=== PATIENT | male | born 1955 | race Caucasian/White ===

== ENCOUNTER → 2024-07-04 06:37 | Outpatient (REF) | payer MEDICARE, OTHER, SELFPAY ==
[2024-07-04 07:18] LABS: % Basophils 0.5 % (0-2); % Eosinophils 2.5 % (0-6); % Immature Granulocytes 0.6 % (0-0.5); % Lymphocytes 17.6 % (20.5-51.1); % Monocytes 6.3 % (1.7-9.3); % Neutrophils 72.5 % (42.2-75.2); Absolute Eosinophils 0.2 10^3/uL (0-0.7); Absolute Immature Granulocytes 0.1 10^3/uL (0-0.05); Absolute Lymphocytes 1.5 10^3/uL (1.2-3.4); Absolute Monocytes 0.5 10^3/uL (0.1-0.6); Absolute Neutrophils 6.1 10^3/uL (1.4-6.5); Hematocrit 45.7 % (39.0-52.0); Hemoglobin 15.4 g/dL (13.0-18.0); Mean Corp Hgb Conc. 33.7 g/dL (33.0-37.0); Mean Corpuscular Hgb 31.8 pg (27.0-31.0); Mean Corpuscular Volume 94.2 fL (80.0-94.0); Mean Platelet Volume 10.1 fL (7.4-10.4); Nucleated Red Blood Cells % 0 % (-); Platelet Count 188 10^3/uL (130-400); Red Blood Cell Count 4.85 10^6/uL (4.70-6.10); Red Cell Dist. Width 14.3 % (11.5-14.5); White Blood Cell Count 8.5 10^3/uL (4.8-10.8)
[2024-07-04 07:51] LABS: HDL Cholesterol 47 mg/dl; LDL Cholesterol, Calculated 74 mg/dl; Total Cholesterol 148 mg/dl (50-199); Triglyceride 139 mg/dl (10-149); Very Low Density Lipoprotein 27 mg/dl (0-30)
[2024-07-04 08:41] LABS: Glycohemoglobin (HgbA1c) 5.9 % (4.0-5.6)
[2024-07-04 21:17] LABS: FSH 3.1 mIU/ml (1.55-9.74); Luteinizing Hormone 2.48 mIU/ml (1.24-7.80); Prolactin 9.1 ng/ml (3.7-17.9); Vitamin D, 25-OH*** 33.1 ng/mL (30-80)
[2024-07-04 21:31] LABS: PSA, Total - Screen 1.44 ng/ml (0.0-4.0)
[2024-07-05 13:45] LABS: HIV Combo Negative (Negative)
[2024-07-05 15:24] LABS: % Free Testosterone 1.8 % (1.6-2.9); Free Testosterone 62 pg/mL (47-244); Sex Hormone Binding Globulin 32 nmol/L (19-76); Total Testosterone 336 ng/dL (300-720)
== END ==
LOC: REG 06:37
PROVIDERS: ATTENDING PHYSICIAN Internal Medicine Geriatric Medicine
DX: Z76.89 Persons encountering health services in other specified circumstances (principal); E78.5 Hyperlipidemia, unspecified; K21.9 Gastro-esophageal reflux disease without esophagitis; G31.84 Mild cognitive impairment of uncertain or unknown etiology; N52.9 Male erectile dysfunction, unspecified; R73.03 Prediabetes; E66.09 Other obesity due to excess calories; E87.5 Hyperkalemia; G47.00 Insomnia, unspecified
CPT/HCPCS: 36415; 80061; 82088; 82306; 83001; 83002; 83036; 84146; 84244; 84270; 84402; 84403; 85025; 87389; G0103

== ENCOUNTER → 2024-07-20 12:44 | Outpatient (REF) | payer MEDICARE, OTHER, SELFPAY ==
[2024-07-20 14:26] LABS: Luteinizing Hormone 2.66 mIU/ml (1.24-7.80); Prolactin 5.5 ng/ml (3.7-17.9)
== END ==
LOC: REG 12:44
PROVIDERS: ATTENDING PHYSICIAN Internal Medicine Geriatric Medicine
DX: N52.9 Male erectile dysfunction, unspecified (principal)
CPT/HCPCS: 36415; 83001; 83002; 84146; 84270; 84402; 84403

== ENCOUNTER → 2024-11-15 06:44 | Outpatient (REF) | payer MEDICARE, OTHER, SELFPAY ==
[2024-11-15 08:46] LABS: % Basophils 0.3 % (0-2); % Eosinophils 2.8 % (0-6); % Immature Granulocytes 0.3 % (0-0.5); % Lymphocytes 24.7 % (20.5-51.1); % Monocytes 7.3 % (1.7-9.3); % Neutrophils 64.6 % (42.2-75.2); Absolute Eosinophils 0.2 10^3/uL (0-0.7); Absolute Lymphocytes 1.7 10^3/uL (1.2-3.4); Absolute Monocytes 0.5 10^3/uL (0.1-0.6); Absolute Neutrophils 4.4 10^3/uL (1.4-6.5); Hematocrit 46.5 % (39.0-52.0); Hemoglobin 15.4 g/dL (13.0-18.0); Mean Corp Hgb Conc. 33.1 g/dL (33.0-37.0); Mean Corpuscular Hgb 30.9 pg (27.0-31.0); Mean Corpuscular Volume 93.2 fL (80.0-94.0); Nucleated Red Blood Cells % 0 % (-); Platelet Count 170 10^3/uL (130-400); Red Blood Cell Count 4.99 10^6/uL (4.70-6.10); Red Cell Dist. Width 14.3 % (11.5-14.5); White Blood Cell Count 6.7 10^3/uL (4.8-10.8)
[2024-11-15 09:17] LABS: ALT (SGPT) 17 U/L (0-50); AST (SGOT) 21 U/L (17-59); Albumin 4.3 g/dl (3.5-5.0); Alkaline Phosphatase 68 U/L (38-126); Blood Urea Nitrogen 29 mg/dl (9-20); Calcium 9.8 mg/dl (8.4-10.2); Carbon Dioxide 30 mmol/L (22-30); Chloride 103 mmol/L (98-107); Glucose 110 mg/dl (70-99); HDL Cholesterol 53 mg/dl; LDL Cholesterol, Calculated 92 mg/dl; Sodium 139 mmol/L (135-145); Total Bilirubin 0.9 mg/dl (0.2-1.3); Total Cholesterol 167 mg/dl (50-199); Total Protein 6.6 g/dl (6.3-8.2); Triglyceride 110 mg/dl (10-149); Very Low Density Lipoprotein 22 mg/dl (0-30); eGFR > 60.00
== END ==
LOC: REG 06:44
PROVIDERS: ATTENDING PHYSICIAN Internal Medicine Geriatric Medicine
DX: E78.5 Hyperlipidemia, unspecified (principal); K21.9 Gastro-esophageal reflux disease without esophagitis; G31.84 Mild cognitive impairment of uncertain or unknown etiology; N52.9 Male erectile dysfunction, unspecified; R73.03 Prediabetes; E66.09 Other obesity due to excess calories; E87.5 Hyperkalemia; G47.00 Insomnia, unspecified; E55.9 Vitamin D deficiency, unspecified; R73.09 Other abnormal glucose; R73.9 Hyperglycemia, unspecified
CPT/HCPCS: 36415; 80053; 80061; 85025

== ENCOUNTER → 2025-01-31 10:40 | Outpatient (REF) | payer MEDICARE, OTHER, SELFPAY | LOC: RAD 10:40 | PROVIDERS: ATTENDING PHYSICIAN Nurse Practitioner Adult Health; FAMILY PHYSICIAN Internal Medicine Geriatric Medicine | DX: M79.644 Pain in right finger(s) (principal) | CPT/HCPCS: 73140 ==

== ENCOUNTER → 2025-07-10 06:21 | Outpatient (REF) | payer MEDICARE, OTHER, SELFPAY ==
[2025-07-10 07:37] LABS: Urine Character Clear (Clear)
[2025-07-10 07:40] LABS: Hematocrit 48.7 % (39.0-52.0); Hemoglobin 16.2 g/dL (13.0-18.0); Mean Corp Hgb Conc. 33.3 g/dL (33.0-37.0); Mean Corpuscular Volume 94.0 fL (80.0-94.0); Nucleated Red Blood Cells % 0 % (-); Platelet Count 195 10^3/uL (130-400); Red Cell Dist. Width 13.5 % (11.5-14.5)
[2025-07-10 08:02] LABS: ALT (SGPT) 21 U/L (0-50); AST (SGOT) 21 U/L (17-59); Albumin 4.5 g/dl (3.5-5.0); Alkaline Phosphatase 71 U/L (38-126); Blood Urea Nitrogen 20 mg/dl (9-20); Calcium 10.2 mg/dl (8.4-10.2); Carbon Dioxide 30 mmol/L (22-30); Chloride 105 mmol/L (98-107); Glucose 136 mg/dl (70-99); HDL Cholesterol 50 mg/dl; LDL Cholesterol, Calculated 111 mg/dl; Potassium 5.3 mmol/L (3.5-5.1); Sodium 140 mmol/L (135-145); Total Protein 7.3 g/dl (6.3-8.2); Very Low Density Lipoprotein 20 mg/dl (0-30); eGFR > 60.00
[2025-07-10 08:51] LABS: Glycohemoglobin (HgbA1c) 6.1 % (4.0-5.6)
[2025-07-10 09:27] LABS: Urine Red Blood Cell 0-2 /HPF (0-2); Urine Squamous Cell 0-2 /LPF (Few); Urine White Cell 0-2 /HPF (0-5)
[2025-07-10 09:44] LABS: Vitamin D, 25-OH*** 35.6 ng/mL (30-80)
[2025-07-13 05:52] LABS: Chlamydia Pneumoniae, IgM <1:20 (<1:20); Chlamydia Psittaci, IgM <1:20 (<1:20); Chlamydia Trachomatis, IgM <1:20 (<1:20)
== END ==
LOC: REG 06:21
PROVIDERS: ATTENDING PHYSICIAN Internal Medicine Geriatric Medicine
DX: Z00.00 Encounter for general adult medical examination without abnormal findings (principal); E78.5 Hyperlipidemia, unspecified; K21.9 Gastro-esophageal reflux disease without esophagitis; G31.84 Mild cognitive impairment of uncertain or unknown etiology; N52.9 Male erectile dysfunction, unspecified; R73.03 Prediabetes; E66.09 Other obesity due to excess calories; E87.5 Hyperkalemia; G57.00 Lesion of sciatic nerve, unspecified lower limb; E55.9 Vitamin D deficiency, unspecified; Z13.31 Encounter for screening for depression
CPT/HCPCS: 36415; 80053; 80061; 81003; 81015; 82306; 83036; 85025; 86632; 86790; 87389

== ENCOUNTER → 2025-07-11 09:07 | Outpatient (REF) | payer MEDICARE, OTHER, SELFPAY | LOC: RAD 09:07 | PROVIDERS: ATTENDING PHYSICIAN Internal Medicine Geriatric Medicine | DX: R22.43 Localized swelling, mass and lump, lower limb, bilateral (principal); Z00.00 Encounter for general adult medical examination without abnormal findings; E78.5 Hyperlipidemia, unspecified; K21.9 Gastro-esophageal reflux disease without esophagitis; G31.84 Mild cognitive impairment of uncertain or unknown etiology; N52.9 Male erectile dysfunction, unspecified; R73.03 Prediabetes; E66.09 Other obesity due to excess calories; E87.5 Hyperkalemia; G47.00 Insomnia, unspecified; E55.9 Vitamin D deficiency, unspecified; R73.09 Other abnormal glucose; Z13.31 Encounter for screening for depression | CPT/HCPCS: 93970 ==